=== PATIENT | female | born 1945 | race Caucasian/White ===

== ENCOUNTER 2021-10-07 15:56 | Emergency (ER) | payer OTHER ==
[~2021-10-07] VITALS: Ht 157.5 cm; Wt 50.8 kg
[2021-10-07 16:49] LABS: HEMATOCRIT 37.6 % (31.2-41.9); MEAN CORPUSCULAR VOLUME 94.4 fL (75.5-95.3); PLATELET COUNT (AUTO) 237 K/uL (179-408)
[2021-10-07 17:02] LABS: CARBON DIOXIDE 29 mmol/L (21-32); CHLORIDE 98 mmol/L (98-107); CREATININE 0.9 mg/dL (0.6-1.3); GLUCOSE 100 mg/dL (74-106); POTASSIUM 4.2 mmol/L (3.5-5.1); UREA NITROGEN, BLOOD 17 mg/dL (7-18)
[2021-10-07 17:19] LABS: ALANINE AMINOTRANSFERASE 26 U/L (14-59); ALKALINE PHOSPHATASE 94 U/L (50-136); ASPARTATE AMINOTRANSFERASE 21 U/L (15-37); BILIRUBIN,DIRECT < 0.1 mg/dL (0.0-0.2); BILIRUBIN,TOTAL 0.3 mg/dL (0.2-1.0); TOTAL PROTEIN, SERUM 7.4 g/dL (6.4-8.2)
[2021-10-07] MEDS ORDERED: PANT20TA2 PO (17:45)
--- NOTE | 2021-10-07 19:53 | NUR ---
Received call from Sami, spoke with Karen, patient is going to be transferred to [facility].
--- NOTE | 2021-10-07 20:06 | NUR ---
Dr. Parsons speaking with Dr. Acevedo.
--- NOTE | 2021-10-07 23:30 | NUR ---
Received call back from Karen garcia [place], gave auth number for ambulance: [id number]
--- NOTE | 2021-10-08 01:46 | NUR ---
Received call back from October with transfer information. Patient going to [facility], accepting is Dr. Acevedo, room 217A, number to report to , eta [phone].
--- NOTE | 2021-10-08 04:40 | NUR ---
Received call from [facility], delay of 1-2 hours ~8-9am eta.
--- NOTE | 2021-10-08 08:00 | NUR ---
Patient tolerated breakfast meal with no distress noted.
--- NOTE | 2021-10-08 08:57 | NUR ---
Gave ENOC Sung nurse from [facility].
--- NOTE | 2021-10-08 09:47 | NUR ---
Called Case alena for [facility], spoke Shanthi regarding ambulance status mixing picker tender. She states that she is on hold for [facility] to check for ETA.
--- NOTE | 2021-10-08 09:50 | NUR ---
Shanthi Teller Vault from [facility] called back with Yusuf MACK. She states that ETA is push back to 1100.
--- NOTE | 2021-10-08 10:00 | NUR ---
Patient sitting up on gurny reading with no distress noted.
--- NOTE | 2021-10-08 10:01 | NUR ---
Called [facility] ambulance for transport of patient to [facility] ETA is 1hr.
--- NOTE | 2021-10-08 10:43 | NUR ---
Gave SBAR report to [phone] who will take patient to [facility].
== END 2021-10-08 10:48 | disposition short-term general hospital (02) ==
LOC: ER 15:58
DX: R07.9 Chest pain, unspecified (principal); K21.9 Gastro-esophageal reflux disease without esophagitis
CPT/HCPCS: 36415; 71045; 84484; 85025; 85730; 93005; A4663